=== PATIENT | male | born 1950 | race Hispanic/Latino ===

== ENCOUNTER 2018-02-06 14:07 | Emergency (ER) | payer MEDICARE, BC ==
[2018-02-06 14:08] VITALS: BMI 43.3
[2018-02-06 14:44] VITALS: RESP 20
--- NOTE | 2018-02-06 15:02 | ED PDOC ---
Arrival/HPI - General Chief Complaint: Flu-like Symptoms Time Seen by Provider: 02/06/18 14:36 Historian: Patient, Spouse () - History of Present Illness Narrative History of Present Illness (Text): 02/06/18 14:52 A 67 year old male, whose past medical history includes hypertension and AAA(has not been repaired, patient states he has Ultrasound performed every year to check on it), who is accompanied by his , presents to the emergency department complaining of left-side reproducible chest pain. Patient reports he has been coughing, wheezing, experiencing congestion and fever(102-103) for the past 3 days. States at some point while coughing, he felt a sudden "pulled sensation" in his left-chest region. Since then, every cough is associated with sharp pain in the area. Notes also experiencing body aches. He took Tylenol for the pain, however has had no relief of symptom. Patient denies any diarrhea, constipation, dark/bright red blood stools, or any other complaints at this time. Denies any history of diabetes or hyperlipidemia. No PMD Time/Duration: < week (3 days) Past Medical History - Provider Review Nursing Documentation Reviewed: Yes - Infectious Disease Hx of Infectious Diseases: None - Cardiac Hx Pacemaker: No Other/Comment: AAA - Pulmonary Hx Respiratory Disorders: Yes Hx Sleep Apnea: Yes (CPAP (not using because he doesn't know how to use machine)) - Neurological Hx Paralysis: No - HEENT Hx HEENT Disorder: No - Renal Hx Renal Disorder: No - Endocrine/Metabolic Hx Endocrine Disorders: No - Hematological/Oncological Hx Blood Transfusions: No Hx Blood Transfusion Reaction: No - Integumentary Hx Dermatological Disorder: No - Musculoskeletal/Rheumatological Hx Musculoskeletal Disorders: Yes - Gastrointestinal Hx Gastrointestinal Disorders: Yes Hx Diverticulitis: Yes Hx Gastroesophageal Reflux: Yes - Genitourinary/Gynecological Hx Genitourinary Disorders: No - Psychiatric Hx Emotional Abuse: No Hx Physical Abuse: No Hx Substance Use: No - Anesthesia Hx Anesthesia Reactions: No Hx Malignant Hyperthermia: No - Suicidal Assessment Feels Threatened In Home Enviroment: No Family/Social History - Physician Review Nursing Documentation Reviewed: Yes Family/Social History: No Known Family HX Smoking Status: Former Smoker Hx Alcohol Use: Yes (OCC WINE) Hx Substance Use: No Allergies/Home Meds Allergies/Adverse Reactions: Allergies shellfish derived Allergy (Verified 08/24/15 19:29) ANAPHYLAXIS amlodipine besylate [From [facility]] Adverse Reaction (Intermediate, Verified 05/18/16 10:37) LEG SWELLING Home Medications: Home Meds Medication Instructions Recorded Confirmed Aspirin [Ecotrin] 81 mg PO DAILY 05/18/16 05/24/16 Candesartan Cilexetil [Atacand] 16 mg PO DAILY 05/18/16 05/24/16 Cholecalciferol (Vitamin D3) 2,000 unit PO DAILY 05/18/16 05/24/16 [Vitamin D3] Cyanocobalamin [Vitamin B12] 500 mcg PO DAILY 05/18/16 05/24/16 Esomeprazole Magnesium [Nexium] 40 mg PO DAILY 05/18/16 05/24/16 RX: Dipyridamole [Persantine] 25 mg PO TID 05/18/16 05/18/16 Rosuvastatin Calcium [Crestor] 5 mg PO DAILY 05/18/16 05/24/16 Review of Systems - Review of Systems Constitutional: Fevers Eyes: Normal ENT: Sinus Congestion Respiratory: Cough, Wheezing Cardiovascular: Chest Pain (left-side chest pain reproducible with cough.) Gastrointestinal: absent: Stool Changes (no dark/bright red bloody stools), Constipation, Diarrhea Genitourinary Male: Normal Musculoskeletal: Myalgias Skin: Normal Neurological: Normal Endocrine: Normal Hemo/Lymphatic: Normal Psychiatric: Normal Physical Exam Vital Signs Reviewed: Yes Vital Signs Temp Pulse Resp BP Pulse Ox 02/06/18 14:39 100.8 F H 120 H 20 164/109 H 99 Temperature: Febrile Blood Pressure: Hypertensive Pulse: Regular Respiratory Rate: Normal Appearance: Positive for: Well-Appearing, Non-Toxic, Comfortable Pain Distress: None Mental Status: Positive for: Alert and Oriented X 3 - Systems Exam Head: Present: Atraumatic, Normocephalic Pupils: Present: PERRL Extroacular Muscles: Present: EOMI Conjunctiva: Present: Normal Mouth: Present: Moist Mucous Membranes Neck: Present: Normal Range of Motion Respiratory/Chest: Present: Clear to Auscultation, Good Air Exchange, Other (left-side reproducible chest pain). No: Respiratory Distress, Accessory Muscle Use Cardiovascular: Present: Regular Rate and Rhythm, Normal S1, S2. No: Murmurs Abdomen: No: Tenderness, Distention, Peritoneal Signs Back: Present: Normal Inspection Upper Extremity: Present: Normal Inspection. No: Cyanosis, Edema Lower Extremity: Present: Normal Inspection. No: Edema Neurological: Present: GCS=15, CN II-XII Intact, Speech Normal Skin: Present: Warm, Dry, Normal Color. No: Rashes Psychiatric: Present: Alert, Oriented x 3, Normal Insight, Normal Concentration Medical Decision Making ED Course and Treatment: 02/06/18 14:56 Impression: 67 year old male with left-side sharp reproducible chest pain. No other notable findings on physical exam except the left-side reproducible chest pain. PT notes chest pain only started after he coughed;. No leg swelling, hx of dvt, recent trauma or surgery. No venous stasis. No hx of blood clots. Low gestalt for PE. Differential Diagnosis included but are not limited to: Viral URI vs. Influenza vs. Pneumonia. Plan: -- Chest X-ray -- Labs -- Motrin -- Reassess and disposition Progress Notes: EKG: Ordered, reviewed, and independently interpreted the EKG. Rate : 127 BPM Rhythm : Sinus tachycardia Interpretation : No STEMI. Comparison : No previous EKG for comparison. 02/07/18 1800 Vitals improved: tachy improved w/ PO fluids and pain control. IVF Bolus not noted to be flowing so PO fluids given. Xray unremarkable. Flu negative. No meningeal signs. No fall or trauma. Abdomen non-ttp. Non-distended abdomen. No urinary complaints. Likely viral syndrome vs Bronchitis. Endorsed to patient return indications and followup as well as continued hydration. - RAD Interpretation Radiology Orders: 02/06/18 14:56 CHEST TWO VIEWS (PA/LAT) [RAD] Stat - Medication Orders Current Medication Orders: Ibuprofen (Motrin Tab) 600 mg PO STAT STA Stop: 02/06/18 14:57 - Scribe Statement The provider has reviewed the documentation as recorded by the [facility] Provider Scribe Attestation: All medical record entries made by the Scribe were at my direction and personally dictated by me. I have reviewed the chart and agree that the record accurately reflects my personal performance of the history, physical exam, medical decision making, and the department course for this patient. I have also personally directed, reviewed, and agree with the discharge instructions and disposition. Disposition/Present on Arrival - Present on Arrival Any Indicators Present on Arrival: No History of DVT/PE: No History of Uncontrolled Diabetes: No Urinary Catheter: No History of Decub. Ulcer: No History Surgical Site Infection Following: None - Disposition Have Diagnosis and Disposition been Completed?: Yes Diagnosis: Bronchitis Disposition: HOME/ ROUTINE Disposition Time: 17:44 Patient Plan: Other Condition: GOOD Discharge Instructions (ExitCare): Acute Bronchitis Additional Instructions: MAIDA BARROW, thank you for letting us take care of you today. Your provider was Jamaal Chaparro and you were treated for flu like symptoms. The emergency medical care you received today was directed at your acute symptoms. If you were prescribed any medication, please fill it and take as directed. It may take several days for your symptoms to resolve. Return to the Emergency Department if your symptoms worsen, do not improve, or if you have any other problems. Please contact your doctor or call one of the physicians/clinics you have been referred to that are listed on the Patient Visit Information form that is included in your discharge packet. Bring any paperwork you were given at discharge with you along with any medications you are taking to your follow up visit. Our treatment cannot replace ongoing medical care by a primary care provider outside of the emergency department. Thank you for allowing the [facility] team to be part of your care today. If you had an X-Ray or CT scan: A Radiologist will review the ED reading if any change in treatment is needed we will contact you. If you had a blood, urine, or wound culture: It will take several days for the results, if any change in treatment is needed we will contact you. If you had an STI test: It will take 48 hours for the results. Please call after 1 week if you have not heard back. Prescriptions: Acetaminophen with Codeine [Tylenol with Codeine #3 Tablet] 1 each PO Q8H 3 Days #9 tablet RX: Azithromycin [Z-Hansel] 250 mg PO DAILY #6 tab Referrals: Faviola Morrissey MD [Medical Doctor] - Follow up with primary Forms: [employer] ([place])
[2018-02-06] MEDS ORDERED: Sodium Chloride 0.9% 1,000 ML IV SCH (15:45)
[2018-02-06 15:56] LABS: BASO # 0.01 K/mm3 (0.0-2.0); BASO % 0.1 % (0.0-3.0); EOS # 0.1 (0.0-0.7); EOS % 0.5 % (1.5-5.0); GRAN # 11.28 (1.4-6.5); GRAN % 83.6 % (50.0-68.0); HEMOGLOBIN 15.5 g/dL (14.0-18.0); LYMPH % 7.4 % (22.0-35.0); MEAN CELL VOLUME 88.1 fl (80.0-105.0); MEAN CORPUSCULAR HEMOGLOBIN 29.4 pg (25.0-35.0); MEAN CORPUSCULAR HGB CONC 33.3 g/dl (31.0-37.0); MEAN PLATELET VOLUME 10.5 fl (7.0-11.0); MONO # 1.1 (0.1-0.6); MONO % 8.4 % (1.0-6.0); RBC 5.28 10^6/uL (3.5-6.1); RED CELL DISTRIBUTION WIDTH 13.9 % (11.5-14.5); WHITE BLOOD COUNT 13.5 10^3/ul (4.5-11.0)
[2018-02-06 16:04] LABS: ALB/GLOB RATIO 1.2 (1.1-1.8); ALBUMIN 4.1 g/dL (3.0-4.8); ALT/SGPT 25 U/L (7-56); AST/SGOT 25 U/L (17-59); BLOOD UREA NITROGEN 14 mg/dL (7-21); CALCIUM 9.1 mg/dL (8.4-10.5); GFR NON-AFRICAN AMERICAN > 60
--- NOTE | 2018-02-06 17:04 | RAD ---
Date of service: 02/06/2018 HISTORY: fever, cough COMPARISON: 06/17/2012 TECHNIQUE: Chest PA and lateral FINDINGS: LUNGS: No active pulmonary disease. PLEURA: No significant pleural effusion identified. No pneumothorax apparent. CARDIOVASCULAR: Normal. OSSEOUS STRUCTURES: No significant abnormalities. VISUALIZED UPPER ABDOMEN: Normal. OTHER FINDINGS: None. IMPRESSION: No active disease.
--- NOTE | 2018-02-06 18:31 | CARD ---
APPROVED REPORT Date of service: 02/06/2018 EKG Measurement Heart [id number] <Conclusion> Sinus tachycardia Minimal voltage criteria for LVH, may be normal variant Borderline ECG
[2018-02-06 19:29] VITALS: BP 157/95; PULSE 110; TEMP 99.7; O2SAT 97
== END 2018-02-06 19:15 | disposition home or self-care (01) ==
LOC: ED 14:07
DX: J40 Bronchitis, not specified as acute or chronic (principal); I10 Essential (primary) hypertension; Z87.891 Personal history of nicotine dependence
CPT/HCPCS: 71046; 80053; 83735; 85025; 87804; 93005; 99283; J7030